=== PATIENT | female | born 1945 | race Caucasian/White ===

== ENCOUNTER 2016-05-19 13:47 | Emergency (ER) | payer MEDICARE ==
[~2016-05-19 13:47] MED LIST: ATEN25 PO; CELLCEPT5 PO; MICARDIS20 MG PO; MULTIVITAMI1 PO; PREM625 PO; PROGRAF1; PROGRAF1 MG OR
[2016-05-19 14:15] LABS: BASOPHILS 0 %; BASOPHILS ABSOLUTE 0.01 10/3/uL (0.0-0.16); EOSINOPHILS 0 %; EOSINOPHILS ABSOLUTE 0.01 10/3/uL (0.0-0.53); HEMOGLOBIN 10.6 g/dL (12.0-16.0); IMMATURE GRANULOCYTES 1.2 %; LYMPHOCYTES 4.1 %; LYMPHOCYTES ABSOLUTE 1.04 10/3/uL (0.67-4.30); MEAN CORPUSCULAR HEMOGLOB 28.3 pg (26.0-34.0); MEAN PLATELET VOLUME 8.8 fL (9.2-13.0); MONOCYTES 4.4 %; MONOCYTES ABSOLUTE 1.12 10/3/uL (0.21-1.20); NEUTROPHILS 90.3 %; NEUTROPHILS ABSOLUTE 22.72 10/3/uL (2.02-8.40); RBC DISTRIBUTION WIDTH 13.3 % (12.0-16.0); RED CELL COUNT 3.74 10/6/uL (4.0-5.6)
[2016-05-19 14:16] LABS: ER CBC TAT 0 Hrs 10 Mins; HEMATOCRIT 29.7 % (36.0-48.0); MEAN CORPUS HGB CONC 35.7 g/dL (32.0-36.0); MEAN CORPUSCULAR VOLUME 79.4 fL (80-100); PLATELET COUNT 403 10/3/uL (150-400); WHITE BLOOD CELLS 25.2 10/3/uL (4.5-10.5)
[2016-05-19 14:17] LABS: MANUAL DIFF NO %
[2016-05-19 14:27] LABS: ASCORBIC ACID (UR NOT ORDER) NEG (NEG); BILIRUBIN, URINE NEGATIVE (NEG); ER URINALYSIS TAT 0 Hrs 12 Mins; KETONE, URINE NEGATIVE (NEG); LEUKOCYTE ESTERASE(NOT OR MOD (NEG); NITRITE (URINE) NEG (NEG); WBC (NOT ORDERED) (RFLEX) 13 (0-5)
[2016-05-19 14:30] LABS: A/G RATIO 0.5 (0.7-1.9); ALBUMIN 2.2 G/DL (3.5-5.0); ALKALINE PHOSPHATASE 173 U/L (45-117); BUN (BLOOD UREA NITROGEN) 15 MG/DL (6-23); CALCIUM, SERUM 8.5 MG/DL (8.5-10.4); CHLORIDE, SERUM 82 MMOL/L (96-112); CO2 (CARBON DIOXIDE) 24 MMOL/L (24-34); CREATININE 1.48 MG/DL (0.55-1.02); GFR AFRICAN AMERICAN 41 ML/MIN (>=60); GFR NON AFRICAN AMERICAN 35 ML/MIN (>=60); GLOBULIN 4.8 G/DL (2.5-4.1); GLUCOSE, SERUM 183 MG/DL (60-99); POTASSIUM, SERUM 2.7 MMOL/L (3.5-5.3); SGOT(AST) 23 U/L (5-40); SGPT(ALT) 33 U/L (5-65); SODIUM, SERUM 120 MMOL/L (135-148); TOTAL BILIRUBIN 0.6 MG/DL (0-1.2)
[2016-05-19 14:35] LABS: ER DIFF TAT 0 Hrs 29 Mins; LYMPHOCYTES 3 %; LYMPHOCYTES ABSOLUTE (CALC) 0.76 10/3/uL (0.67-4.30); MONOCYTES 3 %; MONOCYTES ABSOLUTE (CALC) 0.76 10/3/uL (0.21-1.20); NEUTROPHILS ABSOLUTE (CALC) 23.69 10/3/uL (2.02-8.40); PLATELET ESTIMATE SLT INC (ADEQUATE); RBC MORPHOLOGY NORM (NORMAL); SEGMENTED NEUTROPHIL (0) 94 %; TOTAL NUCLEATED CELLS 100
[2016-05-19] MEDS ORDERED: MICARDIS40 PO (15:28)
[2016-05-19] MEDS ORDERED: CELLCEPT5 PO (15:34)
[2016-05-19] MEDS ORDERED: PROGRAF1 PO (15:35)
[2016-05-19] MEDS ORDERED: NORV5 PO (15:36)
[2016-05-19] MEDS ORDERED: VITC500 PO (15:39)
[2016-05-19] MEDS ORDERED: CLEAR EYE1 OPH (15:39)
[2016-05-19] MEDS ORDERED: MULTIVIT/MIN PO (15:40)
[2016-05-19] MEDS ORDERED: CALTRA600D PO (15:40)
[2016-05-19] MEDS ORDERED: VITE PO (15:41)
[2016-05-19] MEDS ORDERED: VITAMIN A PO (15:42)
[2016-05-19 16:36] LABS: LACTATE 1.2 MMOL/L (0.3-2.4)
[2016-05-19 16:39] LABS: PROCALCITONIN 1.76 ng/mL (<0.5)
== END 2016-05-19 21:50 | disposition short-term general hospital (02) ==
LOC: ER 13:47
PROVIDERS: Emergency Medicine
DX: R10.13 Epigastric pain (principal); D72.829 Elevated white blood cell count, unspecified; Z94.4 Liver transplant status; Z88.1 Allergy status to other antibiotic agents; Z88.8 Allergy status to other drugs, medicaments and biological substances; Z79.899 Other long term (current) drug therapy
CPT/HCPCS: 71010; 74176; 80053; 81001; 83605; 83690; 84145; 85025; 87040; 87077; 87086; 87150; 87186; 87493; 87493-59; 93005; 99284; A9270-GY